=== PATIENT | male | born 1960 | race Caucasian/White ===

== ENCOUNTER 2025-02-06 19:52 | Inpatient (IN) | payer OTHER ==
[~2025-02-06] VITALS: Ht 182.9 cm; Wt 119.6 kg
[2025-02-06 20:49] LABS: PLATELET COUNT (AUTO) 270 K/uL (150-450); RED BLOOD CELL COUNT(AUTO) 4.50 MIL/uL (4.50-5.90); RED CELL DISTRIBUTION WIDTH 12.9 % (11.5-14.5); WHITE BLOOD COUNT (AUTO) 9.3 K/uL (4.5-11.0)
[2025-02-06 20:55] LABS: CALCIUM, TOTAL 8.2 mg/dL (8.8-10.5); CREATININE 0.98 mg/dL (0.60-1.30); GLOMERULAR FILTR. RATE CALC > 60 mL/min (>60); GLUCOSE,RANDOM 107 mg/dL (70-110); SODIUM SERUM 134 mmol/L (136-145); UREA NITROGEN, BLOOD 17 mg/dL (7-18)
[2025-02-06 21:03] LABS: TROPONIN I-HIGH SENSITIVITY 12 ng/L (<76)
[2025-02-06] MEDS ORDERED: GABA-1181 PO (21:04)
[2025-02-06] MEDS ORDERED: SEMA0.258 SQ (21:05)
[2025-02-06] MEDS: SODIUM CHLORIDE 0.9% 1,000 ML IV ONE (21:13)
[2025-02-06 22:14] LABS: APPEARANCE,URINE CLEAR (CLEAR); GLUCOSE, URINE (UA) NEGATIVE (NEGATIVE); LEUKOCYTE ESTERASE ,URINE SMALL (NEGATIVE); NITRATE,URINE NEGATIVE (NEGATIVE); OCCULT BLOOD,URINE NEGATIVE (NEGATIVE); SPECIFIC GRAVITIY, URINE 1.021 (1.003-1.030)
[2025-02-06 22:26] LABS: SQUAMOUS EPITHELIAL CELL,UR Rare /LPF (None Seen)
[2025-02-06] MEDS ORDERED: ONDANSETRON HCL 4 MG/2 ML VIAL IVP PRN (23:45)
[2025-02-06] MEDS ORDERED: MAGNESIUM HYDROXIDE SUSPENSION 30 ML UDCUP PO PRN (23:45)
[2025-02-06] MEDS ORDERED: IPRATROPIUM BROMIDE 0.5 MG/2.5 ML NEB SOLUTION NEB PRN (23:45)
[2025-02-06] MEDS ORDERED: MORPHINE SULFATE 2 MG/ML SYRINGE IVP PRN (23:45)
[2025-02-06] MEDS ORDERED: ALBUTEROL SULFATE 2.5 MG/0.5 ML NEB SOLUTION NEB PRN (23:45)
[2025-02-06] MEDS ORDERED: BISACODYL 10 MG RECTAL RECTAL SUPPOSITORY PR PRN (23:45)
[2025-02-06] MEDS ORDERED: HYDROCODONE/ACETAMINOPHEN 5-325 MG TABLET PO PRN (23:45)
[2025-02-06] MEDS ORDERED: ZOLPIDEM TARTRATE 5 MG TABLET PO PRN (23:45)
[2025-02-06] MEDS: HEPARIN SODIUM,PORCINE 5,000 UNITS/ML VIAL SQ SCH (23:56)
[2025-02-07] MEDS ORDERED: DEXTROSE 50%-WATER 25 GM/50 ML SYRINGE IVP PRN (04:15)
[2025-02-07 08:30] VITALS: BP 105/60; PULSE 74; RESP 18; TEMP 98.4; O2SAT 97
[2025-02-07] MEDS: PANTOPRAZOLE SODIUM 40 MG DR TABLET PO SCH (08:31)
[2025-02-07] MEDS ORDERED: BUPR1TAB45 SL (08:40)
[2025-02-07 11:27] VITALS: BP 101/39; PULSE 75; RESP 19; TEMP 98.1; O2SAT 97
[2025-02-07] MEDS: BUPRENORPHINE HCL/NALOXONE HCL 2-0.5 MG SUBLINGUAL TABLET SL ONE (13:53)
[2025-02-07] MEDS: ACETAMINOPHEN 325 MG TABLET PO PRN (13:55)
[2025-02-07] MEDS ORDERED: SODIUM CHLORIDE 0.9% 500 ML IV ONE (14:13)
[2025-02-07] MEDS: CefTRIAXone 1 GM/DEXTROSE 50 ML IV SCH (15:09)
[2025-02-07 15:50] VITALS: BP 99/60; PULSE 94; RESP 18; TEMP 98.1; O2SAT 97
[2025-02-07 16:01] LABS: GLUCOMETER DEV NAME(LOC) 5S.1D; GLUCOSE,POINT OF CARE 109 MG/DL (70-110)
[2025-02-07 19:50] VITALS: BP 103/57; PULSE 77; RESP 18; TEMP 98.6; O2SAT 96
[2025-02-07 20:10] LABS: GLUCOMETER DEV NAME(LOC) 5S.1D; GLUCOSE,POINT OF CARE 106 MG/DL (70-110)
[2025-02-07] MEDS: INSULIN LISPRO 100 UNITS/ML SQ PRN (20:35)
[2025-02-07 22:26] LABS: GLUCOMETER DEV NAME(LOC) 5N.2C; GLUCOSE,POINT OF CARE 147 MG/DL (70-110)
[2025-02-07 23:12] VITALS: BP 108/69; PULSE 75; RESP 17; TEMP 97.9; O2SAT 97
[2025-02-08 03:15] VITALS: BP 109/64; PULSE 74; RESP 17; TEMP 97.3; O2SAT 97
[2025-02-08 05:01] LABS: COVID AG,FIA SOURCE NASAL SWAB
[2025-02-08 05:48] LABS: SARS-COV2 (COVID) ANTIGEN,FIA Positive (Negative)
[2025-02-08 06:26] LABS: PLATELET COUNT (AUTO) 251 K/uL (150-450); RED BLOOD CELL COUNT(AUTO) 4.43 MIL/uL (4.50-5.90); RED CELL DISTRIBUTION WIDTH 13.1 % (11.5-14.5); WHITE BLOOD COUNT (AUTO) 8.2 K/uL (4.5-11.0)
[2025-02-08 06:48] LABS: CALCIUM, TOTAL 8.6 mg/dL (8.8-10.5); CREATININE 0.83 mg/dL (0.60-1.30); GLOMERULAR FILTR. RATE CALC > 60 mL/min (>60); GLUCOSE,RANDOM 88 mg/dL (70-110); SODIUM SERUM 139 mmol/L (136-145); UREA NITROGEN, BLOOD 14 mg/dL (7-18)
[2025-02-08] MEDS: BUPRENORPHINE HCL/NALOXONE HCL 2-0.5 MG SUBLINGUAL TABLET SL SCH (06:57)
[2025-02-08 07:29] LABS: BAND NEUTROPHILS % (MANUAL) 0 % (0-5)
[2025-02-08 07:31] LABS: EOSINOPHILS % (MANUAL) 8 % (1-6); LYMPHOCYTES % (MANUAL) 30 % (22-44); MONOCYTES % (MANUAL) 17 % (2-9); SEGMENTED NEUTROPHILS % 45 % (40-70)
[2025-02-08 08:59] VITALS: BP 105/65; PULSE 71; RESP 18; TEMP 97.2; O2SAT 98
[2025-02-08 11:21] LABS: GLUCOMETER DEV NAME(LOC) 5N.2C; GLUCOSE,POINT OF CARE 99 MG/DL (70-110)
[2025-02-08 12:25] VITALS: BP 103/57; PULSE 73; RESP 19; TEMP 97.5; O2SAT 96
[2025-02-08 13:01] LABS: GLUCOMETER DEV NAME(LOC) 5N.2C; GLUCOSE,POINT OF CARE 149 MG/DL (70-110)
[2025-02-08 15:55] VITALS: BP 108/60; PULSE 69; RESP 19; TEMP 98; O2SAT 100
[2025-02-08 20:06] LABS: GLUCOMETER DEV NAME(LOC) 5N.2C; GLUCOSE,POINT OF CARE 83 MG/DL (70-110)
[2025-02-09 00:17] VITALS: BP 112/60; PULSE 82; RESP 19; TEMP 97.4; O2SAT 96
[2025-02-09 04:36] VITALS: BP 115/68; PULSE 79; RESP 20; TEMP 97.5; O2SAT 94
[2025-02-09 05:46] LABS: GLUCOMETER DEV NAME(LOC) 5N.2C; GLUCOSE,POINT OF CARE 123 MG/DL (70-110)
[2025-02-09 07:54] VITALS: BP 104/76; PULSE 80; PULSE 95; RESP 18; TEMP 97.3; O2SAT 95
[2025-02-09 08:06] LABS: GLUCOMETER DEV NAME(LOC) 5N.2C; GLUCOSE,POINT OF CARE 101 MG/DL (70-110)
[2025-02-09 11:12] VITALS: BP 112/74; PULSE 63; RESP 18; TEMP 97.7; O2SAT 97
[2025-02-09 15:49] VITALS: BP 118/82; PULSE 69; RESP 18; TEMP 98; O2SAT 98
[2025-02-09 18:11] LABS: GLUCOMETER DEV NAME(LOC) 5S.1D; GLUCOSE,POINT OF CARE 117 MG/DL (70-110)
== END 2025-02-09 17:45 | disposition home or self-care (01) | DRG 312 ==
LOC: EMS 19:56 → EDH 23:32 → 5N 02-07 08:00
PROVIDERS: ADMIT Hospitalist; ATTEND Hospitalist
DX: R55 Syncope and collapse (principal); U07.1 COVID-19; N39.0 Urinary tract infection, site not specified; F17.210 Nicotine dependence, cigarettes, uncomplicated; J44.89 Other specified chronic obstructive pulmonary disease; E66.9 Obesity, unspecified; I10 Essential (primary) hypertension; I35.0 Nonrheumatic aortic (valve) stenosis; E11.9 Type 2 diabetes mellitus without complications; Z71.6 Tobacco abuse counseling; Z79.899 Other long term (current) drug therapy; Z68.35 Body mass index [BMI] 35.0-35.9, adult
CPT/HCPCS: 70450; 80048; 81001; 82962; 83880; 84484; 85025; 87086; 93005; 93306; 93880; 96360; 97116; 97162; 97530; 99285; G0378; J0696; J1644; J7030; J7040; 36415-L1; 36415-TC